=== PATIENT | male | born 1955 | race African-American/Black ===

== ENCOUNTER 2021-10-21 14:31 | Emergency (ER) | payer OTHER ==
[2021-10-21 15:43] LABS: Hemoglobin 4.3 g/dL (13.5-17.5); Mean Corpuscular HGB CONC 28.5 g/dL (32.0-36.0); Mean Corpuscular Hemoglobin 20.3 pg (27.0-33.0); Mean Corpuscular Volume 71.2 fl (81.2-95.1); Mean Platelet Volume 10.4 fl (7.4-10.4); Platelet Count 191 10x3/uL (150-450); Red Blood Cell (RBC) Count 2.12 10x6/uL (4.32-5.72)
[2021-10-21 15:55] LABS: ALT (SGPT) 86 U/L (8-55); AST (SGOT) 180 U/L (5-34); Albumin 2.5 g/dL (3.4-4.8); Alkaline Phosphatase 425 U/L (40-110); Anion Gap 17 mmol/L (10-20); BUN (Urea Nitrogen) 45 mg/dL (8.4-25.7); Bilirubin, Total 3.3 mg/dL (0.2-1.2); Calc. Creatinine Clearance 0 mL/min (70-130); Calcium 8.7 mg/dL (7.8-10.44); Carbon Dioxide 25 mmol/L (23-31); Chloride 96 mmol/L (98-107); Globulin 4.2 g/dL (2.4-3.5); Glucose 127 mg/dL (80-115); Potassium 3.3 mmol/L (3.5-5.1); Protein, Total 6.7 g/dL (5.8-8.1); Sodium 135 mmol/L (136-145)
[2021-10-21 16:02] LABS: MDiff Complete? YES; Manual Diff?? YES
[2021-10-21 16:10] LABS: Band 2 % (5-11); Eosinophils 3 % (0-10); Lymphocytes 24 % (21-51); Monocytes 14 % (0-10); Neutrophil 55 % (42-75); Reactive Lymphocytes 1 % (0-10)
[2021-10-21 16:11] LABS: Platelet Morphology Comment Appears Adequate
[2021-10-21 16:12] LABS: Elliptocytes SLIGHT = 2-5 cells (100X) (0-1/hpf); Hypochromia SLIGHT = 6-15 cells (100X) (0-5/hpf); Target Cells SLIGHT = 2-5 cells (100X) (0-1/hpf)
[2021-10-21 16:17] LABS: Hemoglobin 4.4 g/dL (13.5-17.5); Mean Corpuscular HGB CONC 29.5 g/dL (32.0-36.0); Mean Platelet Volume 10.2 fl (7.4-10.4); Platelet Count 198 10x3/uL (150-450); RBC Distribution Width 16.8 % (11.5-14.5)
[2021-10-21 16:18] LABS: #Eosinphils 0.1 10x3/uL (0.0-0.5); #Monocytes 1.3 10x3/uL (0.0-1.1); #Neutrophils 7.9 10x3/uL (1.5-8.4); %Basophils 0.3 % (0.0-2.0); %Monocytes 12.1 % (0.0-10.0)
[2021-10-21 16:36] LABS: Anisocytosis SLIGHT = 6-15 cells (100X) (0-5/hpf); Hypochromia SLIGHT = 6-15 cells (100X) (0-5/hpf); Macrocytosis SLIGHT = 6-15 cells (100X) (0-5/hpf); Polychromasia SLIGHT = 2-3 cells (100X) (0-2/hpf)
[2021-10-21 16:37] LABS: Large Platelets SLIGHT; Platelet Morphology Comment Appears Adequate; Target Cells SLIGHT = 2-5 cells (100X) (0-1/hpf)
[2021-10-21 17:06] LABS: Anion Gap 15 mmol/L (10-20); BUN (Urea Nitrogen) 46 mg/dL (8.4-25.7); Calc. Creatinine Clearance 0 mL/min (70-130); Calcium 8.8 mg/dL (7.8-10.44); Carbon Dioxide 25 mmol/L (23-31); Chloride 97 mmol/L (98-107); Glucose 110 mg/dL (80-115); Potassium 3.4 mmol/L (3.5-5.1); Sodium 134 mmol/L (136-145)
[2021-10-21 19:40] LABS: INR-International Normal Ratio 1.2; PTT 24.8 sec (22.0-33.0)
== END 2021-10-22 02:01 | disposition short-term general hospital (02) ==
LOC: CSHERS 14:31
DX: N17.9 Acute kidney failure, unspecified (principal); D64.9 Anemia, unspecified; R16.0 Hepatomegaly, not elsewhere classified; I10 Essential (primary) hypertension; E78.5 Hyperlipidemia, unspecified; K21.9 Gastro-esophageal reflux disease without esophagitis; Z79.899 Other long term (current) drug therapy
CPT/HCPCS: 36415; 36430; 74177; 76705; 80053; 83880; 85025; 85060; 85610; 85730; 86850; 86900; 86901; 93005; P9016